=== PATIENT | female | born 1955 | race Caucasian/White ===

== ENCOUNTER 2023-10-22 06:16 | Observation (INO) ==
[~2023-10-22 06:16] MED LIST: Buffered Lidocaine 1% SYRIN 1 ml INTRADERM ONE; Naloxone 0.4 mg VIAL 0.4 mg/ml 1 ml VIAL IV PRN; Ondansetron 4 mg VIAL 2 MG/ML 2 ml VIAL IV PRN; fentaNYL 100 mcg/2 ml 50 MCG/ML VIAL IV PRN
[2023-10-22] MEDS ORDERED: Lidocaine 2% PF 5 ML VIAL ONE (06:40)
[2023-10-22] MEDS ORDERED: Rocuronium 50 mg VIAL 10 mg/ml 5 ml VIAL (50 mg) ONE (06:40)
[2023-10-22] MEDS ORDERED: fentaNYL 250 mcg/5 ml 50 MCG/ML 5 ml VIAL (250 MCG) ONE (06:40)
[2023-10-22] MEDS ORDERED: Midazolam 2 mg/2 ml VIAL 1 mg/ml 2 ml VIAL (2 mg) ONE (06:40)
[2023-10-22] MEDS ORDERED: Propofol 10 MG/ML 20 ML BTL ONE (06:40)
[2023-10-22] MEDS ORDERED: Lidocaine 1% w EPI 1:100,000 MDV 20 ML VIAL ONE (06:48)
[2023-10-22] MEDS ORDERED: Thrombin 5,000 UNITS(BOVINE) for Ultrasound Guided Pseudoaneursym ONE (06:48)
[2023-10-22] MEDS ORDERED: Gelfoam Sponge SIZE 100 SPONGE ONE (06:48)
[2023-10-22] MEDS ORDERED: ceFAZolin VIAL VIAL ONE (06:48)
[2023-10-22] MEDS ORDERED: Chlorhexidine MOUTHWASH 0.12% 15 ML UDC ONE (06:59)
[2023-10-22] MEDS ORDERED: ceFAZolin 2 GM in NS PREMIX 2 GM/100 ML BAG IVPB ONE (06:59)
[2023-10-22] MEDS ORDERED: Famotidine IV 10 MG/ML 2 ml VIAL (20 mg) ONE (06:59)
[2023-10-22 07:03] LABS: Rapid COVID-19 Molecular Undetected (Undetected)
[2023-10-22] MEDS: Lactated Ringers 1000 ml BAG 1,000 ML IV SCH ×2 (07:08→19:50)
[2023-10-22] MEDS: Famotidine IV 10 MG/ML 2 ml VIAL (20 mg) IV ONE ×2 (07:08→19:50)
[2023-10-22] MEDS ORDERED: Dexamethasone IV 4 MG/ML VIAL 1 ml VIAL ONE (07:46)
[2023-10-22] MEDS ORDERED: Ondansetron 4 mg VIAL 2 MG/ML 2 ml VIAL ONE (07:46)
[2023-10-22] MEDS ORDERED: Ondansetron 4 mg VIAL 2 MG/ML 2 ml VIAL IV PRN (09:01)
[2023-10-22] MEDS ORDERED: Calcium Carb (TUMS) 500 mg CHEW TAB PO PRN (09:01)
[2023-10-22] MEDS ORDERED: Morphine 2 MG/ML SYRINGE IV PRN (09:01)
[2023-10-22] MEDS ORDERED: Benzocaine/Menthol LOZ MT PRN (09:01)
[2023-10-22] MEDS ORDERED: HYDROcodone/ACETAMIN 5/325 mg TAB PO PRN (09:01)
[2023-10-22] MEDS ORDERED: Dextran 70/Hypromellose Tears Eye Drops 15 ml BTL (for Artificials Tears) BOTH EYES PRN (09:01)
[2023-10-22] MEDS ORDERED: Phenol 1.4% Throat Spray BTL MT PRN (09:01)
[2023-10-22] MEDS ORDERED: Senna TAB 8.6 mg TAB PO PRN (09:01)
[2023-10-22] MEDS ORDERED: Lactated Ringers 1000 ml BAG 1,000 ML IV SCH (10:00)
[2023-10-22] MEDS ORDERED: Acetaminophen IV 1 GM/100ML 1,000 MG/100 ML BAG IV ONE (10:29)
[2023-10-22] MEDS: HYDROcodone/ACETAMIN 5/325 mg TAB PO PRN (21:41)
[2023-10-23 09:40] VITALS: BP 140/88
[2023-10-23] MEDS: HYDROcodone/ACETAMIN 5/325 mg TAB PO PRN (11:17)
== END 2023-10-23 11:35 | disposition home or self-care (01) ==
LOC: SSU 06:16 → OR 06:16
PROVIDERS: ADMIT Neurological Surgery; ATTEND Neurological Surgery